=== PATIENT | male | born 1970 | race Caucasian/White ===

== ENCOUNTER 2016-12-16 13:31 | Emergency (ER) | payer OTHER ==
[2016-12-16 13:46] VITALS: BP 186/113
[2016-12-16] MEDS ORDERED: CEPHALEXIN 250 MG CAPSULE PO STA (14:42)
[2016-12-16] MEDS ORDERED: TETANUS/DIPHT/PERTUSS (PED) 0.5 ML VIAL IM ONE (14:42)
[2016-12-16] MEDS ORDERED: TETANUS/DIPHTHERIA/PERTUSSIS 0.5 ML SYRINGE IM ONE (14:46)
[2016-12-16] MEDS ORDERED: CEPHALEXIN 250 MG CAPSULE PO ONE (14:46)
[2016-12-16] MEDS ORDERED: LIDOCAINE 1% 2 ML VIAL ONE (15:42)
--- NOTE | 2016-12-16 16:10 | ED Physician Documentation ---
History of Present Illness - Stated complaint Stated Complaint: L TOE LAC - Chief complaint Chief Complaint: Laceration - History obtained from History obtained from: Patient - History of Present Illness Timing: Prior to arrival - Additonal information Additional information: Patient is a 46-year-old male who is otherwise healthy sustained a laceration to his left third toe volar aspect shortly prior to arrival. He complains of pain to the site worse with movement and better with rest. He is on clear when his last tetanus dose was. He otherwise has no health problems he believes he cut it on a sharp piece of metal. He was wearing slippers and was fishing when it occurred. He denies any numbness and tingling to the tip of the toe and can move it normally. Review of systems: For pertinent positives and negatives history of present illness otherwise all other systems have been reviewed and are normal Review of Systems Ten Systems: 10 systems reviewed and negative Constitutional: reports: Chills. denies: Fever PD PAST MEDICAL HISTORY - Present Medications Home Medications: Ambulatory Orders Medication Instructions Recorded Confirmed Cephalexin [Keflex] 500 mg PO QID #20 capsule 12/16/16 - Allergies Allergies/Adverse Reactions: Allergies Allergy/AdvReac Type Severity Reaction Status Date / Time No Known Drug Allergies Allergy Verified 12/16/16 13:46 PD ED PE NORMAL - General General: Alert and oriented X 3, No acute distress, Well developed/nourished - HEENT HEENT: Atraumatic, PERRL, EOMI, Pharynx benign, Dentition benign - Cardiac Cardiac: RRR, No gallop - Respiratory Respiratory: No respiratory distress, Clear bilaterally - Abdomen Abdomen: Normal bowel sounds (2 cm laceration posterior aspect third toe left foot-Transverse), Non tender Results - Vitals Vitals: Vital Signs - 24 hr 12/16/16 13:44 Temperature 36.4 C L Heart Rate 75 Respiratory 17 Rate Blood Pressure 186/113 H O2 Saturation 95 Oxygen O2 Source Room air PD MEDICAL DECISION MAKING - ED course ED course: Patient is a well-appearing 46-year-old man who sustained a laceration to the volar aspect of the third toe left foot. The coloration of the toe as well as sensation is normal. Flexor tendon and extended tendon function are normal. The wound was anesthetized with lidocaine 4 cc. The patient was given tetanus prophylaxis. The wound is irrigated under pressure by me and 4.0 sutures were used 6 sutures were placedPatient tolerated the procedure well and his extensor and flexor tendon function is normal. Given the location of the wound in the deepness of the laceration I will put him on empiric antibiotic prophylaxis is given Keflex here and tetanus prophylaxis at this point will be discharged home. Disposition: To home Clinical impression: 1. 2 cm laceration volar aspect toe #3 left foot Departure - Departure Disposition: 01 Home, Self Care Clinical Impression: Laceration Condition: Good Instructions: ED Abrasion Prescriptions: Cephalexin [Keflex] 500 mg PO QID #20 capsule Comments: Sutures out in 10 days
[2016-12-16] MEDS ORDERED: BACITRACIN OINT TOP ONE (16:11)
== END 2016-12-16 16:25 | disposition home or self-care (01) ==
LOC: ED 13:31
DX: S91.115A Laceration without foreign body of left lesser toe(s) without damage to nail, initial encounter (principal); V94.0XXA Hitting object or bottom of body of water due to fall from watercraft, initial encounter; W26.8XXA Contact with other sharp object(s), not elsewhere classified, initial encounter; Z23 Encounter for immunization
CPT/HCPCS: 12001; 90471; 90715; 99283; A9270